=== PATIENT | female | born 1950 | race Caucasian/White ===

== ENCOUNTER 2023-02-21 14:21 | Inpatient (IN) | payer OTHER ==
[~2023-02-21] VITALS: Ht 160 cm; Wt 63.5 kg
[2023-02-22] MEDS ORDERED: LIPITOR40 M1 PO (08:02)
[2023-02-22] MEDS ORDERED: TOPROL XL50 M1 PO (08:02)
[2023-02-25] MEDS ORDERED: AZELASTINE137 MCG/0. (13:51)
[2023-02-25] MEDS ORDERED: VITAMIN E180 M1 (13:51)
[2023-02-25] MEDS ORDERED: MELATONIN3 MG (13:51)
[2023-02-25] MEDS ORDERED: ADULTS MULTIVI1 EACH (13:51)
[2023-02-25] MEDS ORDERED: GABAPENTIN100 M2 (13:51)
[2023-02-25] MEDS ORDERED: FLONASE16 GM (13:51)
[2023-02-25] MEDS ORDERED: CELECOXIB200 MG (13:51)
[2023-02-25] MEDS ORDERED: OMEPRAZOLE40 MG (13:51)
[2023-02-25] MEDS ORDERED: CETIRIZINE HCL10 MG (13:51)
== END 2023-03-01 22:19 | disposition home or self-care (01) | DRG 502 ==
LOC: SURH 02-25 09:48 → O/R 02-25 09:48 → SURG-SUITE 02-25 13:45 → SURH 02-25 17:27
PROVIDERS: ADMIT Orthopaedic Surgery; ATTEND Orthopaedic Surgery
PROC: 0SGJ0JZ Fusion of Left Tarsal Joint with Synthetic Substitute, Open Approach (ICD-10-PCS; 2023-02-25)
PROC: 0LXW0ZZ Transfer Left Foot Tendon, Open Approach (ICD-10-PCS; principal; 2023-02-25 13:45)
DX: S92.312K Displaced fracture of first metatarsal bone, left foot, subsequent encounter for fracture with nonunion (principal); L08.89 Other specified local infections of the skin and subcutaneous tissue; M20.12 Hallux valgus (acquired), left foot

== ENCOUNTER 2023-04-10 10:21 | Outpatient (CLI) | payer OTHER ==
[~2023-04-10 10:21] MED LIST: ADULTS MULTIVI1 EACH; AZELASTINE137 MCG/0.; CELECOXIB200 MG; CETIRIZINE HCL10 MG; FLONASE16 GM; GABAPENTIN100 M2; LIPITOR40 M1 PO; MELATONIN3 MG; OMEPRAZOLE40 MG; TOPROL XL50 M1 PO; VITAMIN E180 M1
== END 2023-04-10 10:26 | disposition home or self-care (01) ==
LOC: RAD 10:21
PROVIDERS: ATTEND Orthopaedic Surgery
DX: M96.0 Pseudarthrosis after fusion or arthrodesis (principal); T84.6 Infection and inflammatory reaction due to internal fixation device

== ENCOUNTER 2023-05-21 13:33 | Outpatient (CLI) | payer OTHER | END 2023-05-21 13:42 | disposition home or self-care (01) | LOC: RAD 13:33 | PROVIDERS: ATTEND Orthopaedic Surgery | DX: S92.315K Nondisplaced fracture of first metatarsal bone, left foot, subsequent encounter for fracture with nonunion (principal) ==

== ENCOUNTER 2023-08-30 10:02 | Outpatient (CLI) | payer OTHER | END 2023-08-30 10:07 | disposition home or self-care (01) | LOC: NUCLEAR 10:02 | PROVIDERS: ATTEND Orthopaedic Surgery | DX: I87.2 Venous insufficiency (chronic) (peripheral) (principal); L03.126 Acute lymphangitis of left lower limb ==